=== PATIENT | male | born 1950 | race Caucasian/White ===

== ENCOUNTER 2018-01-26 08:15 | Observation (INO) | payer OTHER ==
--- NOTE | 2018-01-26 08:23 | PDOC ---
History of Present Illness - General Chief Complaint: Lightheaded Stated Complaint: DIZZYNESS Time Seen by Provider: 01/26/18 08:19 - History of Present Illness Initial Comments: 01/26/18 09:40 67-year-old male with a history of ulcerative colitis, hyperlipidemia, diabetes , previous 1PPD smoker for 15yrs presents to the emergency department with 24 hours of feeling unsteady when he walks. Patient reports his symptoms began when he was walking to the store yesterday. He states that intermittently he feels like the pavement is uneven and he will fall to the side. He does not notice if it's to one side more than the other. He also reports feeling a pressure in his head. Denies any fevers, chills. Denies any other focal weakness or numbness. He has no history of vertigo, currently denies room spinning dizziness when he has the symptoms. Denies chest pain, shortness of breath, abdominal pain, nausea, vomiting, diarrhea. Denies recent travel or immobility. Has never had similar symptoms in the past. NIH Stroke Scale - Last Known Well Date/Time & Onset Date Last Known Well: 01/25/18 Time Last Known Well: 12:00 - Initial Evaluation Level of consciousness: Alert Ask patient the month and their age: Answers both correctly Ask patient to open & close eyes; make fist and let go: Obeys both correctly Best gaze (horizontal eye movement): Normal Visual field testing: No visual field loss Facial paresis (Show teeth/raise eyebrows/close eyes tight): Normal symmetrical movement Motor Function: Left Arm: Normal Motor Function: Right Arm: Normal (extends arm 90 (or 45) degrees for 10 seconds without drift Motor Function: Left Leg: Normal (extends leg 30 degrees for 5 seconds without drift) Motor Function: Right Leg: Normal (extends leg 30 degrees for 5 seconds without drift) Limb Ataxia: No ataxia Sensory(Use pinprick test arms,legs,trunk,face/side to side): Normal Best language (Describe picture, name items, read sentences): No Aphasia Dysarthria (read several words): Normal articulation Extinction and Inattention: No abnormality - Total Score NIH Stroke Scale Score: 0 Past History - Past Medical History Allergies/Adverse Reactions: Allergies Allergy/AdvReac Type Severity Reaction Status Date / Time No Known Allergies Allergy Verified 01/26/18 08:16 Home Medications: Ambulatory Orders Balsalazide Disodium [COLAZAL (Nf)] 3 tab PO TID 01/26/18 Budesonide [Uceris (Nonformulary)] 9 mg PO DAILY 01/26/18 Co Q-10 1 tab PO DAILY 01/26/18 Glucosam/Chond-Msm1/C/Jovon/Bor [Kotzdzp-Juije-RFO Complex Cplt] 3 tab PO DAILY 01/26/18 Levothyroxine [Synthroid -] 75 mcg PO DAILY 01/26/18 Metformin HCl 1,000 mg PO HS 01/26/18 Metformin HCl 500 mg PO DAILY 01/26/18 [place]-3 Fatty Acids [[place]-3] 2 tab PO DAILY 01/26/18 Simvastatin 20 mg PO HS 01/26/18 Review of Systems - Review of Systems Comments:: 01/26/18 09:42 GENERAL/CONSTITUTIONAL: No fever or chills. No weakness. HEAD, EYES, EARS, NOSE AND THROAT: No change in vision. No ear pain or discharge. No sore throat. GASTROINTESTINAL: No nausea, vomiting, diarrhea or constipation. GENITOURINARY: No dysuria, frequency, or change in urination. CARDIOVASCULAR: No chest pain or shortness of breath. RESPIRATORY: No cough, wheezing, or hemoptysis. MUSCULOSKELETAL: No joint or muscle swelling or pain. No neck or back pain. SKIN: No rash NEUROLOGIC: No vertigo, loss of consciousness, or change in strength/sensation. +unsteadiness when ambulating, +head pressure ENDOCRINE: No increased thirst. No abnormal weight change. HEMATOLOGIC/LYMPHATIC: No anemia, easy bleeding, or history of blood clots. ALLERGIC/IMMUNOLOGIC: No hives or skin allergy. *Physical Exam - Physical Exam Comments: 01/26/18 09:42 GENERAL: Awake, alert, and fully oriented, in no acute distress HEAD: No signs of trauma EYES: PERRLA, EOMI, sclera anicteric, conjunctiva clear ENT: Auricles normal inspection, hearing grossly normal, nares patent, oropharynx clear without exudates. Moist mucosa NECK: Normal ROM, supple, no lymphadenopathy, JVD, or masses LUNGS: Breath sounds equal, clear to auscultation bilaterally. No wheezes, and no crackles HEART: Regular rate and rhythm, normal S1 and S2, no murmurs, rubs or gallops ABDOMEN: Soft, nontender, normoactive bowel sounds. No guarding, no rebound. No masses EXTREMITIES: Normal range of motion, no edema. No clubbing or cyanosis. No cords, erythema, or tenderness NEUROLOGICAL: Normal speech, cranial nerves intact, negative pronator drift, 5/ 5 strength in all 4 extremities, normal sensation to light touch in all 4 extremities, normal cerebellar exam, normal gait, normal reflexes and tone. Negative [id number]-usdw exam. SKIN: Warm, Dry, normal turgor, no rashes or lesions noted. Heart Score/ECG Review #1 01/26/18 10:27 Twelve-lead EKG was performed and reviewed by me. Normal sinus rhythm, rate 65. Normal axis and intervals. No ST elevations. ED Treatment Course - LABORATORY CBC & Chemistry Diagram: 01/26/18 09:27 01/26/18 09:27 Medical Decision Making - Medical Decision Making 01/26/18 09:44 67-year-old male with multiple medical problems including hyperlipidemia, diabetes and previous smoker presents the emergency department with unsteadiness when ambulating. Vitals unremarkable. Exam unremarkable, however with Romberg testing, pt feels that he is swaying side to side. Differential includes CVA versus TIA but also possibly peripheral vertigo. Given risk factors , will perform a stroke workup, if CT head is negative, will obtain an MRI. Will also consult neurology and likely admit. Current NIHSS is 0, TPA deferred 2/2 low NIHSS and 24hr onset of sxs. 01/26/18 10:28 Labs and mild hyponatremia with sodium of [address] head negative for acute infarct. Patient continues to have symptoms of unsteadiness, MRI has been ordered. We've put in a consult for neurology and are awaiting a call back. 01/26/18 10:[address] Otoole who agrees the patient needs an MRI to r/o CVA. MRI is not working here [facility]. This patient will require transfer down [facility]. [facility] has been paged, we're waiting a callback. 01/26/18 12:33 2nd call made to speak with Dr. Nielsen, we are awaiting a call back. 01/26/18 12:[address] shine ED, patient has been accepted for admission to a stroke bed for further management. [facility] has been called for transportation down to [facility]. Patient remains clinically stable at this time. *DC/Admit/Observation/Transfer Diagnosis at time of Disposition: Unsteady gait - Discharge Dispostion Condition at time of disposition: Stable Admit: Yes - Referrals - Patient Instructions - Post Discharge Activity - Attestations Physician Attestion: 01/26/18 12:38 I, Dr. Leslie Camacho MD, attest that this document has been prepared under my direction and personally reviewed by me in its entirety. I further attest, that it accurately reflects all work, treatment, procedures and medical decision -making performed by me.
[2018-01-26 08:34] VITALS: BMI 28.7
[2018-01-26 09:43] LABS: URINE APPEARANCE Clear; URINE BILIRUBIN Negative (NEGATIVE); URINE BLOOD Negative (NEGATIVE); URINE GLUCOSE (UA) Negative (NEGATIVE); URINE KETONE Negative (NEGATIVE); URINE LEUK ESTERASE Negative (NEGATIVE); URINE NITRITE Negative (NEGATIVE); URINE PROTEIN Negative (NEGATIVE); URINE UROBILINOGEN 0.2 (0.2-1.0)
[2018-01-26 09:44] LABS: URINE COLOR YELLOW
[2018-01-26 09:48] LABS: BASO % 0.7 % (0-2.0); HEMATOCRIT 40.2 % (35.4-49); HEMOGLOBIN 13.3 GM/dl (11.7-16.9); LYMPH % 27.4 % (8-40); MCH 28.6 pg (25.7-33.7); MCHC 33.2 g/dl (32.0-35.9); MEAN CELL VOLUME 86.3 fl (80-96); MEAN PLT VOLUME 7.2 fl (7.5-11.1); MONO % 6.9 % (3.8-10.2); PLATELET COUNT 186 K/MM3 (134-434); RBC 4.66 M/mm3 (4.00-5.60); WHITE BLOOD COUNT 7.3 K/mm3 (4.0-10.8)
[2018-01-26 09:56] LABS: ALBUMIN 3.5 g/dl (3.5-5.0); ALK PHOS 48 U/L (32-92); ANION GAP 5 (8-16); BLOOD UREA NITROGEN 18 mg/dl (7-18); CALCIUM 8.6 mg/dl (8.4-10.2); CHLORIDE 103 mmol/L (98-107); CO2 26 mmol/L (22-28); CREATININE 1.1 mg/dl (0.6-1.3); GLUCOSE,RANDOM 142 mg/dl (74-106); MAGNESIUM 1.6 mg/dL (1.8-2.4); POTASSIUM 3.5 mmol/L (3.5-5.1); SGOT/AST 17 U/L (10-42); SGPT/ALT 11 U/L (10-40); SODIUM 134 mmol/L (136-145); TOT PROT 7.3 g/dl (6.4-8.3)
[2018-01-26 10:13] LABS: BILIRUBIN,TOTAL 0.6 mg/dl (0.2-1.0)
[2018-01-26 10:18] LABS: ACTIVATED PTT 25.2 SECONDS (24.0-38.9)
[2018-01-26 10:22] LABS: INR 1.01 (0.82-1.09); PROTHROMBIN TIME (PATIENT) 11.3 SEC (10.2-13.0)
[2018-01-26] MEDS ORDERED: ASPIRIN 325 MG TABLET PO ONE (10:53)
[2018-01-26] MEDS ORDERED: ATORVASTATIN CA 80 MG TABLET (FP) PO ONE (10:53)
[2018-01-26] MEDS ORDERED: ATORVASTATIN CA 80 MG TABLET (FP) ONE (11:31)
[2018-01-26] MEDS ORDERED: ASPIRIN 325 MG TABLET ONE (11:31)
--- NOTE | 2018-01-26 13:21 | EKG ---
Test Reason : Blood Pressure : / mmHG Vent. Rate : 065 BPM Atrial Rate : 065 BPM P-R Int : 142 ms QRS Dur : 088 ms QT Int : 384 ms P-R-T Axes : 036 -14 001 degrees QTc Int : 399 ms NORMAL SINUS RHYTHM NORMAL ECG NO PREVIOUS ECGS AVAILABLE Confirmed by MD ANNA MARIE, CARMEN ([id number]) on 01/26/2018 1:20:40 PM Referred By: MD TALAVERA Confirmed By:CARMEN THRASHER MD
[2018-01-26] MEDS ORDERED: metFORMIN HCL 500 MG TABLET (FP) PO SCH ×2 (16:30)
--- NOTE | 2018-01-26 18:24 | CON.NEURO ---
Consult - History of Present Illness History of Present Illness: 67-year-old male with a history of ulcerative colitis, hyperlipidemia, diabetes , previous 1PPD smoker for 15yrs presents to the emergency department with 24 hours of feeling unsteady when he walks. Patient reports his symptoms began when he was walking to the store yesterday. He states that intermittently he feels like the pavement is uneven and he will fall to the side. He does not notice if it's to one side more than the other. He also reports feeling a pressure in his head. Denies any fevers, chills. Denies any other focal weakness or numbness. He has no history of vertigo, currently denies room spinning dizziness when he has the symptoms. Denies chest pain, shortness of breath, abdominal pain, nausea, vomiting, diarrhea. Denies recent travel or immobility. Has never had similar symptoms in the past. feels doing better and able to walk to bathroom unassisted. MRI BRAIN prelim : no stroke, mass - History Source History Provided By: Patient, Medical Record - Smoking History Smoking history: Never smoked Have you smoked in the past 12 months: No Home Medications - Allergies Allergies/Adverse Reactions: Allergies Allergy/AdvReac Type Severity Reaction Status Date / Time No Known Allergies Allergy Verified 01/26/18 08:16 - Home Medications Home Medications: Ambulatory Orders Balsalazide Disodium [COLAZAL (Nf)] 3 tab PO TID 01/26/18 Budesonide [Uceris (Nonformulary)] 9 mg PO DAILY 01/26/18 Co Q-10 1 tab PO DAILY 01/26/18 Glucosam/Chond-Msm1/C/Jovon/Bor [Vqgxzan-Pezdj-NFY Complex Cplt] 3 tab PO DAILY 01/26/18 Levothyroxine [Synthroid -] 75 mcg PO DAILY 01/26/18 Metformin HCl 1,000 mg PO HS 01/26/18 Metformin HCl 500 mg PO DAILY 01/26/18 [place]-3 Fatty Acids [[place]-3] 2 tab PO DAILY 01/26/18 Simvastatin 20 mg PO HS 01/26/18 Physical Exam-Neuro Vital Signs: Vital Signs Temperature 98.3 F 01/26/18 15:52 Pulse Rate 76 01/26/18 15:52 Respiratory Rate 16 01/26/18 15:52 Blood Pressure 148/81 01/26/18 15:52 O2 Sat by Pulse Oximetry (%) 98 01/26/18 15:52 Constitutional: Yes: Well Nourished, No Distress Labs: CBC, BMP 01/26/18 09:27 01/26/18 09:27 INR, PTT INR 1.01 (0.82-1.09) 01/26/18 09:27 - Neuro Exam Level Of Consciousness: Yes: Alert, Oriented to Person (EOMI, no facial, motor 5 /5, no drift, no ataxia, reflxes symmetric ) Imaging - Results MRI: Image Reviewed Problem List - Problems (1) HLD (hyperlipidemia) Code(s): E78.5 - HYPERLIPIDEMIA, UNSPECIFIED (2) Diabetes Code(s): E11.9 - TYPE 2 DIABETES MELLITUS WITHOUT COMPLICATIONS (3) Unsteady gait Code(s): R26.81 - UNSTEADINESS ON FEET Assessment/Plan 67-year-old male with a history of ulcerative colitis, hyperlipidemia, diabetes , previous 1PPD smoker for 15yrs presents to the emergency department with 24 hours of feeling unsteady when he walks. MRI BRAIN prelim : no stroke, mass - possible peripheral vertigo ; no cnetral [employer] features on exam await official radiology reads ASA, check lipids, A1c likely be able to Dc in AM Dr Otoole
--- NOTE | 2018-01-26 18:35 | HP ---
Admitting History and Physical - Primary Care Physician PCP: Kylah Nielsen - Admission History of Present Illness: 67-year-old male with a history of ulcerative colitis, hyperlipidemia, diabetes, previous 1PPD smoker for 15yrs presents to the emergency department with 24 hours of feeling unsteady when he walks. Patient reports his symptoms began when he was walking to the store yesterday. He states that intermittently he feels like the pavement is uneven and he will fall to the side. He does not notice if it's to one side more than the other. He also reports feeling a pressure in his head. Denies any fevers, chills. Denies any other focal weakness or numbness. He has no history of vertigo, currently denies room spinning dizziness when he has the symptoms. Denies chest pain, shortness of breath, abdominal pain, nausea, vomiting, diarrhea. Denies recent travel or immobility. Has never had similar symptoms in the past. - Past Medical History Cardiovascular: Yes: Hyperlipdemia Gastrointestinal: Yes: Ulcerative Colitis Endocrine: Yes: Diabetes Mellitus - Smoking History Smoking history: Never smoked Have you smoked in the past 12 months: No Home Medications - Allergies Allergies/Adverse Reactions: Allergies Allergy/AdvReac Type Severity Reaction Status Date / Time No Known Allergies Allergy Verified 01/26/18 08:16 - Home Medications Home Medications: Ambulatory Orders Balsalazide Disodium [Colazal (Nf) -] 3 tab PO TID 01/26/18 Budesonide [Uceris (Nonformulary)] 9 mg PO DAILY 01/26/18 Co Q-10 1 tab PO DAILY 01/26/18 Glucosam/Chond-Msm1/C/Jovon/Bor [Nxvwibf-Eaeix-JSQ Complex Cplt] 3 tab PO DAILY 01/26/18 Levothyroxine [Synthroid -] 75 mcg PO DAILY 01/26/18 Metformin HCl 1,000 mg PO HS 01/26/18 Metformin HCl 500 mg PO DAILY 01/26/18 [place]-3 Fatty Acids [[place]-3] 2 tab PO DAILY 01/26/18 Simvastatin 20 mg PO HS 01/26/18 Physical Examination Vital Signs: Vital Signs Temperature 98.3 F 01/26/18 15:52 Pulse Rate 76 01/26/18 15:52 Respiratory Rate 16 01/26/18 15:52 Blood Pressure 148/81 01/26/18 15:52 O2 Sat by Pulse Oximetry (%) 98 01/26/18 15:52 Constitutional: Yes: No Distress HENT: Yes: Atraumatic Neck: Yes: Supple Cardiovascular: Yes: Regular Rate and Rhythm Respiratory: Yes: CTA Bilaterally Gastrointestinal: Yes: Normal Bowel Sounds Extremities: Yes: WNL Edema: No Peripheral Pulses WNL: Yes Neurological: Yes: Alert, Oriented Labs: CBC, BMP 01/26/18 09:27 01/26/18 09:27 Imaging - Results X-ray: Report Reviewed Problem List - Problems (1) Unsteady gait Assessment/Plan: will monitor mri/mra neuro consult PT eval Code(s): R26.81 - UNSTEADINESS ON FEET (2) Diabetes Assessment/Plan: on po meds bgms Code(s): E11.9 - TYPE 2 DIABETES MELLITUS WITHOUT COMPLICATIONS (3) HLD (hyperlipidemia) Assessment/Plan: on meds stable Code(s): E78.5 - HYPERLIPIDEMIA, UNSPECIFIED Assessment/Plan Laboratory Tests 01/26/18 01/26/18 01/26/18 09:15 09:27 09:27 WBC 7.3 RBC 4.66 Hgb 13.3 Hct 40.2 MCV 86.3 MCH 28.6 MCHC 33.2 RDW 14.0 Plt Count 186 MPV 7.2 L Neutrophils % 61.0 Lymphocytes % 27.4 Monocytes % 6.9 Eosinophils % 4.0 Basophils % 0.7 PT with INR INR PTT (Actin FS) Sodium 134 L Potassium 3.5 Chloride 103 Carbon Dioxide 26 Anion Gap 5 L BUN 18 Creatinine 1.1 Creat Clearance w eGFR > 60 POC Glucometer Random Glucose 142 H Calcium 8.6 Magnesium 1.6 L Total Bilirubin 0.6 AST 17 ALT 11 Alkaline Phosphatase 48 Troponin I Total Protein 7.3 Albumin 3.5 Urine Color Yellow Urine Appearance Clear Urine pH 5.0 Ur Specific [place] 1.010 Urine Protein Negative Urine Glucose (UA) Negative Urine Ketones Negative Urine Blood Negative Urine Nitrite Negative Urine Bilirubin Negative Urine Urobilinogen 0.2 Ur Leukocyte Esterase Negative 01/26/18 01/26/18 01/26/18 09:27 09:27 18:15 WBC RBC Hgb Hct MCV MCH MCHC RDW Plt Count MPV Neutrophils % Lymphocytes % Monocytes % Eosinophils % Basophils % PT with INR 11.3 INR 1.01 PTT (Actin FS) 25.2 L Sodium Potassium Chloride Carbon Dioxide Anion Gap BUN Creatinine Creat Clearance w eGFR POC Glucometer 187 Random Glucose Calcium Magnesium Total Bilirubin AST ALT Alkaline Phosphatase Troponin I < 0.03 Total Protein Albumin Urine Color Urine Appearance Urine pH Ur Specific [place] Urine Protein Urine Glucose (UA) Urine Ketones Urine Blood Urine Nitrite Urine Bilirubin Urine Urobilinogen Ur Leukocyte Esterase Active Medications Generic Name Dose Route Start Last Admin Trade Name Freq PRN Reason Stop Dose Admin Atorvastatin Calcium 10 mg 01/26/18 22:00 Lipitor - PO HS SHERRIE Levothyroxine Sodium 75 mcg 01/27/18 07:00 Synthroid - PO 0700 SHERRIE Metformin HCl 500 mg 01/27/18 07:00 Glucophage - PO 0700 SHERRIE Metformin HCl 1,000 mg 01/26/18 16:30 01/26/18 18:31 Glucophage - PO 1,000 mg 1630 SHERRIE Administration Non-Formulary Medication 3 tab 01/26/18 22:00 Balsalazide Disodium PO TID SHERRIE
[2018-01-26] MEDS: ASPIRIN COATED 81 MG TABLET.EC PO SCH (21:42)
[2018-01-26] MEDS ORDERED: ATORVASTATIN CA 10 MG TABLET (FP) PO SCH (22:00)
[2018-01-26] MEDS ORDERED: BALSALAZIDE DISODIUM PO SCH (22:00)
[2018-01-27 06:14] VITALS: BP 126/75; PULSE 80; TEMP 97.8
[2018-01-27] MEDS ORDERED: metFORMIN HCL 500 MG TABLET (FP) PO SCH (07:00)
[2018-01-27] MEDS ORDERED: LEVOTHYROXINE NA 75 MCG TABLET (FP) PO SCH (07:00)
[2018-01-27 07:16] LABS: CHOLESTEROL 147 mg/dL (50-200); HDL CHOLESTEROL 43 mg/dL (40-60); LDL CHOLESTEROL (ONLY SJRH) 94 mg/dL (5-100); TRIGLYCERIDES 94 mg/dL (35-160)
[2018-01-27] MEDS: ASPIRIN COATED 81 MG TABLET.EC PO SCH (10:32)
--- NOTE | 2018-01-27 13:28 | DS ---
Physical Examination Vital Signs: Vital Signs Temperature 97.8 F 01/27/18 06:00 Pulse Rate 80 01/27/18 06:00 Respiratory Rate 18 01/27/18 09:00 Blood Pressure 126/75 01/27/18 06:00 O2 Sat by Pulse Oximetry (%) 96 01/27/18 09:00 Labs: CBC, BMP 01/26/18 09:27 01/26/18 09:27 Discharge Summary Reason For Visit: UNSTEADY GAIT Current Active Problems Diabetes (Acute) HLD (hyperlipidemia) (Acute) Unsteady gait (Acute) Condition: Stable - Instructions - Home Medications Comprehensive Discharge Medication List: Ambulatory Orders Balsalazide Disodium [Colazal (Nf) -] 3 tab PO TID 01/26/18 Budesonide [Uceris (Nonformulary)] 9 mg PO DAILY 01/26/18 Co Q-10 1 tab PO DAILY 01/26/18 Glucosam/Chond-Msm1/C/Jovon/Bor [Getgokf-Lfmld-JRJ Complex Cplt] 3 tab PO DAILY 01/26/18 Levothyroxine [Synthroid -] 75 mcg PO DAILY 01/26/18 Metformin HCl 1,000 mg PO HS 01/26/18 Metformin HCl 500 mg PO DAILY 01/26/18 [place]-3 Fatty Acids [[place]-3] 2 tab PO DAILY 01/26/18 Simvastatin 20 mg PO HS 01/26/18
== END 2018-01-27 14:31 | disposition home or self-care (01) ==
LOC: FER 08:15 → J4W 14:20 → INTOOBSV 14:20 → UNDOADMOB 14:20 → J4W 01-27 08:30
PROVIDERS: ADMIT Internal Medicine; ATTEND Internal Medicine
DX: R26.81 Unsteadiness on feet (principal); E78.5 Hyperlipidemia, unspecified; E11.9 Type 2 diabetes mellitus without complications; Z79.84 Long term (current) use of oral hypoglycemic drugs; Z87.891 Personal history of nicotine dependence
CPT/HCPCS: 36415; 70450-TC; 70544-TC; 70547-TC; 70551-TC; 71046-TC-FY; 73590-TC-LT-FY; 80053; 80061; 81003; 82962; 83036; 83721; 83735; 84484; 85025; 85610; 85730; 87086; 93005; 97116-GP; 97161-GP; 99283-25; G0378